=== PATIENT | female | born 1990 | race Caucasian/White ===

== ENCOUNTER → 2023-06-27 16:25 | Outpatient (REF) | payer BC, SELFPAY | LOC: PNTC 16:25 | PROVIDERS: ATTENDING PHYSICIAN Obstetrics & Gynecology | DX: O09.819 Supervision of pregnancy resulting from assisted reproductive technology, unspecified trimester (principal) | CPT/HCPCS: 59025; 76815 ==

== ENCOUNTER 2023-07-01 16:08 | Inpatient (IN) | payer BC, SELFPAY ==
[2023-07-01 16:24] VITALS: BP 142/93; BMI 29.0
[2023-07-01 16:51] LABS: Hematocrit 37.6 % (37.0-47.0); Mean Corp Hgb Conc. 34.6 g/dL (33.0-37.0); Mean Corpuscular Hgb 27.5 pg (27.0-31.0); Mean Corpuscular Volume 79.7 fL (81.0-99.0); Platelet Count 181 10^3/uL (130-400); Red Blood Cell Count 4.72 10^6/uL (4.20-5.40); Red Cell Dist. Width 14.9 % (11.5-14.5); White Blood Cell Count 10.1 10^3/uL (4.8-10.8)
[2023-07-01 17:04] LABS: ALT (SGPT) 18 U/L (0-35); AST (SGOT) 28 U/L (14-36); Albumin 3.3 g/dl (3.5-5.0); Alkaline Phosphatase 175 U/L (38-126); Blood Urea Nitrogen 18 mg/dl (7-17); Calcium 9.3 mg/dl (8.4-10.2); Carbon Dioxide 23 mmol/L (22-30); Chloride 102 mmol/L (98-107); Estimated Creatinine Clearance > 125 ml/min; Glucose 99 mg/dl (70-99); Potassium 4.4 mmol/L (3.5-5.1); Sodium 132 mmol/L (135-145); Total Bilirubin 0.2 mg/dl (0.2-1.3); Total Protein 5.9 g/dl (6.3-8.2); eGFR > 60.00
[2023-07-01 17:23] LABS: Protein/creatinine Ratio 0.3; Urine Protein 54 mg/dl
[2023-07-01] MEDS: CYTOTEC 25 MICROGRAM VAG (20:25)
[2023-07-02] MEDS: CYTOTEC 50 MICROGRAM PO ×5 (00:29→22:43)
[2023-07-02] MEDS: ZOLOFT 100 MG PO (10:35)
[2023-07-03] MEDS: LIDOCAINE URO-JET 2% 1 SYRINGE TOPICAL (02:02)
[2023-07-03] MEDS: PITOCIN 30 UNITS/NSS 500 ML IV (04:11)
[2023-07-03] MEDS: ZOLOFT 100 MG PO (07:48)
[2023-07-03] MEDS: IMODIUM 2 MG PO (17:05)
[2023-07-03] MEDS: SUBLIMAZE 100 MCG EPIDURAL (20:16)
[2023-07-03] MEDS: FENTANYL/BUPIVACAINE 100 EPIDURAL (20:30)
[2023-07-04] MEDS: FENTANYL/BUPIVACAINE 100 EPIDURAL (04:12)
[2023-07-04] MEDS: BICITRA 30 ML PO (09:38)
[2023-07-04] MEDS: TYLENOL 1000 MG PO (09:38)
[2023-07-04] MEDS: ANCEF 10 IV (09:39)
[2023-07-04] MEDS: ZITHROMAX INFUSION 250 IV (09:40)
[2023-07-04] MEDS: ZOLOFT PO (11:30)
[2023-07-04] MEDS: TORADOL 15 MG IV ×2 (14:00→19:31)
[2023-07-04] MEDS: PITOCIN 30 UNITS/NSS 500 ML IV (15:37)
[2023-07-04] MEDS: PERCOCET 5/325 1 TABLET PO (22:28)
[2023-07-05] MEDS: TORADOL 15 MG IV ×2 (01:43→09:00)
[2023-07-05 05:11] LABS: Hematocrit 33.1 % (37.0-47.0); Hemoglobin 11.3 g/dL (12.0-16.0); Mean Corp Hgb Conc. 34.1 g/dL (33.0-37.0); Mean Corpuscular Hgb 27.7 pg (27.0-31.0); Mean Corpuscular Volume 81.1 fL (81.0-99.0); Mean Platelet Volume 11.6 fL (7.4-10.4); Platelet Count 158 10^3/uL (130-400); Red Blood Cell Count 4.08 10^6/uL (4.20-5.40); Red Cell Dist. Width 15.3 % (11.5-14.5); White Blood Cell Count 18.1 10^3/uL (4.8-10.8)
[2023-07-05] MEDS: PRENATAL PLUS 1 TABLET PO (09:01)
[2023-07-05] MEDS: ZOLOFT 100 MG PO (09:01)
--- NOTE | 2023-07-05 11:21 | W.PN.ANS.POP ---
Anesthesia Post Operative
- Anesthesia Post Op Note
Vital Signs Stable-See Nursing Note: Yes
Airway Patent: Yes
Adequate Pain Control: Yes
Change in Mental Status: No
Current Postoperative Nausea & Vomiting: No
Anesthesia Complications: No
General Anesthetic Recall: No
Unplanned Admission: No
Post Op Hydration Adequate: Yes
[2023-07-05] MEDS: MOTRIN 600 MG PO (15:23)
[2023-07-05 17:18] LABS: Syphilis/T. pallidum Ab Reflex Negative (Negative)
[2023-07-05] MEDS: MYLICON 80 MG PO (21:49)
[2023-07-05] MEDS: PERCOCET 5/325 1 TABLET PO (23:59)
[2023-07-06] MEDS: ZOLOFT 100 MG PO (07:22)
[2023-07-06] MEDS: PRENATAL PLUS 1 TABLET PO (07:22)
[2023-07-06] MEDS: MOTRIN 600 MG PO (07:22)
--- NOTE | 2023-07-06 09:52 | W.DS.TRANS ---
DC Summary - Appliance Repairer
-
Discharge Instructions:
Discharge Diagnosis/Procedures delivered by csection
Diet Regular
Activity No strenuous activity
Driving Restrictions No driving for 2 weeks
Bathing Restrictions OK to Shower
Instructions:
Stand-Alone Forms: LDRP Delivery
LDRP Hypertensive Disorders
Changes to Home Medications: No
Discharge Medications:
DC Medications w/original date entered in [facility]
cetirizine 10 mg capsule (Zyrtec) 10 mg PO DAILY 07/01/23
cholecalciferol (vitamin D3) 25 mcg (1,000 unit) chewable tablet (Vitamin D3) 25 mcg PO DAILY 07/01/23
magnesium 30 mg tablet 30 mg PO DAILY 07/01/23
vitamin-ferrous fumarate 28 mg iron-folic acid 800 mcg tablet ( Tablet) 1 tab PO DAILY 07/01/23
sertraline 100 mg tablet 100 mg PO DAILY 07/01/23
acetaminophen 325 mg tablet 650 mg PO Q4HPRN PRN mild pain #0 tabs 07/06/23
ibuprofen 600 mg tablet 600 mg PO Q6HPRN PRN cramps #0 tabs 07/06/23
oxycodone 5 mg tablet 5 mg PO Q6H PRN severe pain #12 tabs 07/06/23
Home Medication Changes
Pending Results: No
Total time spent discharging patient (in min): 30
[2023-07-06] MEDS: TYLENOL 650 MG PO (11:58)
== END 2023-07-06 13:45 | disposition home or self-care (01) | DRG 806 ==
LOC: LDRP 16:08
PROVIDERS: Obstetrics & Gynecology; ADMITTING PHYSICIAN Obstetrics & Gynecology; FAMILY PHYSICIAN Student in an Organized Health Care Education/Training Program
PROC: 3E0P7VZ Introduction of Hormone into Female Reproductive, Via Natural or Artificial Opening (ICD-10-PCS; 2023-07-01)
PROC: 3E033VJ Introduction of Other Hormone into Peripheral Vein, Percutaneous Approach (ICD-10-PCS; 2023-07-01)
PROC: 3E0DXGC Introduction of Other Therapeutic Substance into Mouth and Pharynx, External Approach (ICD-10-PCS; 2023-07-02)
PROC: 10907ZC Drainage of Amniotic Fluid, Therapeutic from Products of Conception, Via Natural or Artificial Opening (ICD-10-PCS; 2023-07-04)
PROC: 10E0XZZ Delivery of Products of Conception, External Approach (ICD-10-PCS; 2023-07-04)
DX: O14.04 Mild to moderate pre-eclampsia, complicating childbirth (principal); O99.354 Diseases of the nervous system complicating childbirth; Z37.0 Single live birth; O62.1 Secondary uterine inertia; Z3A.37 37 weeks gestation of pregnancy; N80.9 Endometriosis, unspecified; N97.2 Female infertility of uterine origin; N32.81 Overactive bladder; J45.909 Unspecified asthma, uncomplicated; O99.52 Diseases of the respiratory system complicating childbirth; G43.909 Migraine, unspecified, not intractable, without status migrainosus; O99.344 Other mental disorders complicating childbirth; F41.9 Anxiety disorder, unspecified; F42.9 Obsessive-compulsive disorder, unspecified; R19.7 Diarrhea, unspecified; O76 Abnormality in fetal heart rate and rhythm complicating labor and delivery; N30.11 Interstitial cystitis (chronic) with hematuria; O32.2XX0 Maternal care for transverse and oblique lie, not applicable or unspecified; O63.1 Prolonged second stage (of labor); O75.81 Maternal exhaustion complicating labor and delivery; Z87.440 Personal history of urinary (tract) infections; Z88.0 Allergy status to penicillin; Z88.1 Allergy status to other antibiotic agents; Z91.040 Latex allergy status; Z80.8 Family history of malignant neoplasm of other organs or systems
CPT/HCPCS: 88307; 80053; 82570; 84156; 85027; 86780; 86850; 86900; 86901

== ENCOUNTER → 2024-01-28 13:21 | Outpatient (REF) | payer OTHER, SELFPAY | LOC: HWRAD 13:21 | PROVIDERS: ATTENDING PHYSICIAN Obstetrics & Gynecology; FAMILY PHYSICIAN Student in an Organized Health Care Education/Training Program | DX: N92.0 Excessive and frequent menstruation with regular cycle (principal) | CPT/HCPCS: 76830; 76856 ==

== ENCOUNTER 2024-10-01 12:32 | Emergency (ER) | payer OTHER, SELFPAY ==
[2024-10-01 12:32] VITALS: BMI 24.4
[2024-10-01 12:38] VITALS: BP 119/78
[2024-10-01 13:04] LABS: % Basophils 0.3 % (0-2); % Immature Granulocytes 0.8 % (0-0.5); % Lymphocytes 2.8 % (20.5-51.1); % Monocytes 4.2 % (1.7-9.3); % Neutrophils 91.9 % (42.2-75.2); Absolute Basophils 0.1 10^3/uL (0-0.2); Absolute Immature Granulocytes 0.2 10^3/uL (0-0.05); Absolute Lymphocytes 0.6 10^3/uL (1.2-3.4); Absolute Monocytes 0.9 10^3/uL (0.1-0.6); Hematocrit 35.7 % (37.0-47.0); Hemoglobin 12.1 g/dL (12.0-16.0); Mean Corp Hgb Conc. 33.9 g/dL (33.0-37.0); Mean Corpuscular Hgb 26.7 pg (27.0-31.0); Mean Corpuscular Volume 78.6 fL (81.0-99.0); Mean Platelet Volume 9.7 fL (7.4-10.4); Nucleated Red Blood Cells % 0 %; Platelet Count 218 10^3/uL (130-400); Red Blood Cell Count 4.54 10^6/uL (4.20-5.40); Red Cell Dist. Width 13.2 % (11.5-14.5); White Blood Cell Count 21.7 10^3/uL (4.8-10.8)
[2024-10-01 13:11] LABS: HCG, Serum Qualitative Screen Negative
[2024-10-01 13:12] LABS: Lactic Acid 0.9 mmol/L (0.7-2.0)
[2024-10-01 13:14] LABS: ALT (SGPT) 14 U/L (0-35); AST (SGOT) 17 U/L (14-36); Albumin 4.6 g/dl (3.5-5.0); Alkaline Phosphatase 85 U/L (38-126); Blood Urea Nitrogen 15 mg/dl (7-17); Calcium 9.5 mg/dl (8.4-10.2); Carbon Dioxide 21 mmol/L (22-30); Chloride 103 mmol/L (98-107); Glucose 120 mg/dl (70-99); Potassium 3.8 mmol/L (3.5-5.1); Sodium 134 mmol/L (135-145); Total Protein 7.2 g/dl (6.3-8.2); eGFR > 60.00
[2024-10-01] MEDS: TYLENOL 1000 MG PO (13:20)
[2024-10-01 13:24] LABS: COVID-19 Antigen Negative (Negative)
[2024-10-01] MEDS: NSS 2000 IV (14:16)
[2024-10-01] MEDS: ZOFRAN 4 MG IV (14:18)
--- NOTE | 2024-10-01 14:18 | ED.GENMED ---
History of Present Illness
General
Chief Complaint: Back Pain
Source: patient
Exam Limitations: none
Time Seen by Provider: 10/01/24 13:48
Nursing documentation reviewed up to this point in time: agreed with
History of Present Illness
History of Present Illness:
34-year-old female interstitial cystitis migraines presents with cough fatigue left-sided chest pain started yesterday after lifting a heavy object, had nausea not eating much, she has had dark urine but no dysuria or frequency no flank pain is also
a cough productive sputum
Past History
Past History
ED Past Medical History: Other (Mitral valve prolapse, Interstitial CystitisMigraines); Negative Asthma, HTN, Hypercholesterolemia or NIDDM
ED Past Surgical History: None
Social History
Tobacco: Non-smoker
Alcohol: Occasional
Drug: None
Personal:
Living: with family
Employment: Employed
Review of Systems
Review of Systems
All Other Systems: Not applicable
Constitutional: Reports fever, fatigue and chills
Respiratory: Reports cough and trouble breathing
Cardiac: Reports no symptoms
ABD/GI: Reports nausea
: Reports dark urine
Musculoskeletal: Reports muscle stiffness
Phy Exam
Physical Exam
Physical Exam:
Physical Exam
General: 34-year-old female warm to touch looks uncomfortable not toxic
Neck: Dry lips
Heart: Tachycardic
Lungs: Crackles on the left
Abdomen: Nontender
Neuro: alert and oriented. no focal neurological deficits
Skin: no rash
Psychiatric: well kept. interactive and cooperative
Extremities: no edema. no calf tenderness.
Sepsis
Sepsis Screening
Sepsis Assessment: Sepsis Ruled Out
Sepsis Screen
Sepsis Screen: Sepsis Ruled Out
Date: 10/01/24
Time: 16:03
Course
Orders/Labs/Results
Orders:
Orders
10/01/24 12:42
Test Result ONCE
10/01/24 12:50
COVID-19 Antigen Urgent
Source: Nasal Swab
Complete Blood Count/With Diff Urgent
Comprehensive Metabolic Panel Urgent
HCG, Serum Qualitative Screen Urgent
Lactic Acid Urgent
Influenza A+B Rapid Molecular Urgent
[facility] Source: Nasal Swab
Specimen Description:
10/01/24 13:18
Acetaminophen [Tylenol] 1,000 mg .ROUTE .STK-MED ONE
10/01/24 13:19
Acetaminophen [Tylenol] 1,000 mg PO NOW STA
10/01/24 13:48
CR Chest - 2 Views Urgent
Comment:
Reason For Exam: fever
10/01/24 13:59
Urinalysis Reflex To Culture Urgent
Date Specimen was Collected: 10/01/24
Time Specimen was Collected: 13:56
Urine Microscopic Reflex Cult Urgent
Urine Culture Urgent
[facility] Source: U
Specimen Description:
Date Specimen was Collected: 10/01/24
Time Specimen was Collected: 13:56
10/01/24 14:06
Ketorolac [Toradol] 30 mg IV NOW STA
Ondansetron Injectable [Zofran] 4 mg IV NOW STA
10/01/24 14:07
0.9% Sodium Chloride 1000 ml [Nss] 2,000 ml IV BOLUS
10/01/24 14:17
Blood Culture Q30M
[facility] Source: Blood/Venous
Specimen Description:
CefTRIAXone [Rocephin] 1,000 mg IV NOW STA
10/01/24 14:27
Blood Culture Q30M
[facility] Source: Blood/Venous
Specimen Description:
Abnormal Lab Results
10/01/24 10/01/24
12:50 13:59
WBC 21.7 H 10^3/uL
(4.8-10.8)
Hct 35.7 L %
(37.0-47.0)
MCV 78.6 L fL
(81.0-99.0)
MCH 26.7 L pg
(27.0-31.0)
Abs Immat Gran (auto) 0.2 H 10^3/uL
(0-0.05)
Absolute Neuts (auto) 20.0 H 10^3/uL
(1.4-6.5)
Absolute Lymphs (auto) 0.6 L 10^3/uL
(1.2-3.4)
Absolute Monos (auto) 0.9 H 10^3/uL
(0.1-0.6)
Immature Gran % 0.8 H %
(0-0.5)
Neutrophils % 91.9 H %
(42.2-75.2)
Lymphocytes % 2.8 L %
(20.5-51.1)
Sodium 134 L mmol/L
(135-145)
Carbon Dioxide 21 L mmol/L
(22-30)
Creatinine 0.5 L mg/dL
(0.6-1.0)
Glucose 120 H mg/dl
(70-99)
Urine Ketones 1+ A
(Negative)
Ur Occult Blood Reflex 2+ A
(Negative)
Urine Bilirubin 1+ A
(Negative)
Leukocyte Esterase Rfl 3+ A
(Negative)
Urine WBC (Reflex) 11-15 A /HPF
(0-5)
Urine Albumin (Reflex) 2+ A
(Neg - Trace)
10/01/24 12:50
10/01/24 12:50
Vital Signs
Initial and Last Documented VS:
Initial Vital Signs
Temp Pulse Resp BP Pulse Ox
102 F H 122 16 119/78 97
10/01/24 12:38 10/01/24 12:38 10/01/24 12:38 10/01/24 12:38 10/01/24 12:38
Last Documented Vital Signs
Temp Pulse Resp BP Pulse Ox
102 F H 113 28 92/77 96
10/01/24 12:38 10/01/24 14:30 10/01/24 14:30 10/01/24 14:30 10/01/24 14:30
MDM/Problems Addressed
Differential Diagnosis Includes:
Pneumonia sepsis bacteremia UTI Franc muscle strain
MDM/Problems Addressed:
Fever back pain
*Radiology
Radiology exam reviewed: preliminary read by ED provider
*Pulse Oximetry
Patient hypoxic: no
*Workers Compensation Claims Specialist Interpretation
Rate: tachycardiac
Interpretation: abnormal
Heart Rate: 118
Rhythm: sinus
*Critical Care Note
Total Time (30-74mins, 75-104mins- exclusive of procedures): Not Applicable
Data Reviewed
Source: patient and family
Further Testing Considered But Not Given:
CT of the abdomen
Update Note
Update Note:
Update, suspect pneumonia or other infectious reason for her pain think lifting something heavy is a red abad,
Chest x-ray noted will start on antibiotics I do not think amoxicillin is a true allergy, will hydrate try to get her feeling better disposition pending at this time family patient updated
4 PM patient feeling much better she is eating pizza her vital signs have stabilized
ED Attending Note
-
Portions of this chart may have been created with voice recognition software.� Occasional wrong word or��sound alike� substitutions may have occurred due to the inherent limitations of voice recognition software.
Discharge Plan
Departure
Patient Disposition: Home (Routine Discharge)
Date of Disposition: 10/01/24
Time of Disposition: 16:00
Patient with high blood pressure during this ER visit?: No
Condition: Good
Covid-19: Negative COVID-19
Discharge Problem:
Community acquired pneumonia
Instructions: Pneumonia in adults - ED discharge instructions
Prescriptions:
New
azithromycin [Zithromax] 250 mg tablet
250 mg PO DAILY Qty: 6 0RF
cefdinir 300 mg capsule
300 mg PO BID 10 Days Qty: 20 0RF
No Action
sertraline 100 mg Tablet
100 mg PO DAILY
vit-iron fum-folic ac [ Tablet] 28 mg iron- 800 mcg Tablet
1 tab PO DAILY
magnesium 30 mg Tablet
30 mg PO DAILY
cholecalciferol (vitamin D3) [Vitamin D3] 25 mcg (1,000 unit) Tablet,Chewable
25 mcg PO DAILY
Zyrtec 10 mg Capsule
10 mg PO DAILY
acetaminophen 325 mg Tablet
650 mg PO Q4HPRN PRN (Reason: mild pain) Qty: 0 0RF
ibuprofen 600 mg Tablet
600 mg PO Q6HPRN PRN (Reason: cramps) Qty: 0 0RF
oxycodone 5 mg tablet
5 mg PO Q6H PRN (Reason: severe pain) Qty: 12 0RF
Rx Instructions:
may take half tab PO Q 6 hr prn for moderate pain as needed
Referrals:
Mindi Pelleiter MD [Family Provider, Internal Medicine] - Next open appointment
Stand Alone Forms: Return to Work
Activity Restrictions/Additional Instructions:
Drink plenty of fluids
Tylenol or ibuprofen for fever
Antibiotics as prescribed
Follow-up with your primary care provider
Interventions
Interventions:
*Risk Screen - Suicide Last Done: 10/01/24 12:41
*General Assessment Last Done: 10/01/24 14:08
*Neglect/Abuse Screening Last Done: 10/01/24 12:41
*ED- Fall Risk Assessment Last Done: 10/01/24 14:08
ED-Musculoskeletal Assessment Last Done: 10/01/24 14:08
Discharge Date and Time
Print Language: [id number]
[2024-10-01] MEDS: TORADOL 30 MG IV (14:19)
[2024-10-01 14:20] VITALS: BP 108/65
[2024-10-01] MEDS: ROCEPHIN 1000 MG IV (14:22)
[2024-10-01 14:24] LABS: Urine Albumin 2+ (Neg - Trace); Urine Bilirubin 1+ (Negative); Urine Character Slightly Cloudy (Clear); Urine Color Yellow; Urine Glucose Negative (Negative); Urine Ketone 1+ (Negative); Urine Leukocyte 3+ (Negative); Urine Nitrite Negative (Negative); Urine Occult Blood 2+ (Negative); Urine Urobilinogen 1+ (Neg - 1+)
[2024-10-01 14:30] VITALS: BP 92/77
[2024-10-01 14:33] LABS: Urine Squamous Cell >30 /LPF (Few)
[2024-10-01 14:36] LABS: Urine Red Blood Cell 0-2 /HPF (0-2)
== END 2024-10-01 17:00 | disposition home or self-care (01) ==
LOC: EMR 12:32
PROVIDERS: Emergency Medicine; EMERGENCY PHYSICIAN Emergency Medicine; FAMILY PHYSICIAN Student in an Organized Health Care Education/Training Program
DX: J18.9 Pneumonia, unspecified organism (principal); I34.1 Nonrheumatic mitral (valve) prolapse
CPT/HCPCS: 99283; 96374; 96375; 96361; 71046; 80053; 81003; 81015; 83605; 84703; 85025; 87040; 87077; 87086; 87147; 87502; 87811

== ENCOUNTER → 2025-02-09 09:17 | Outpatient (REF) | payer OTHER, SELFPAY | LOC: HWRAD 09:17 | PROVIDERS: ATTENDING PHYSICIAN Nurse Practitioner Family; FAMILY PHYSICIAN Student in an Organized Health Care Education/Training Program | DX: Z87.01 Personal history of pneumonia (recurrent) (principal) | CPT/HCPCS: 71046 ==